=== PATIENT | female | born 1970 | race Caucasian/White ===

== ENCOUNTER 2019-06-04 07:59 | Outpatient (CLI) | payer BC ==
[~2019-06-04 07:59] MED LIST: ASPI-496 PO; EVEN500C4 PO; MAGNESIUM SULFATE PO; MULTIVITAMIN PO; POTASSIUM PO; TYLENOL PO; [UNRECOGNIZED DRUG - OTHER] PO
== END 2019-06-04 23:59 | disposition home or self-care (01) ==
LOC: CFH 07:59
PROVIDERS: ATTEND Nurse Practitioner Family
DX: Z12.31 Encounter for screening mammogram for malignant neoplasm of breast (principal); N64.9 Disorder of breast, unspecified
CPT/HCPCS: 76641; 77063; 77067

== ENCOUNTER 2020-06-04 08:06 | Outpatient (CLI) | payer BC, OTHER | END 2020-06-04 23:59 | disposition home or self-care (01) | LOC: CFH 08:06 | PROVIDERS: ATTEND Nurse Practitioner Family | DX: Z12.31 Encounter for screening mammogram for malignant neoplasm of breast (principal); Z12.39 Encounter for other screening for malignant neoplasm of breast; N60.02 Solitary cyst of left breast; N60.01 Solitary cyst of right breast | CPT/HCPCS: 76641; 77063; 77067 ==